=== PATIENT | female | born 1990 | race Caucasian/White ===

== ENCOUNTER 2017-05-09 14:02 | Emergency (ER) | payer OTHER ==
[2017-05-09] MEDS: ONDANSETRON 4MG/2ML VIAL (J2405) IV (15:49)
[2017-05-09] MEDS: KETOROLAC 30 MG/ML VIAL (J1885) IV (15:49)
[2017-05-09] MEDS: NS 1,000 ML IV (15:50)
== END 2017-05-09 16:56 | disposition home or self-care (01) ==
LOC: M ED 14:02
DX: J02.9 Acute pharyngitis, unspecified (principal); Z87.891 Personal history of nicotine dependence; Z88.0 Allergy status to penicillin
CPT/HCPCS: J2405

== ENCOUNTER 2023-07-13 08:39 | Day surgery (SDC) | payer OTHER ==
[~2023-07-13] VITALS: Ht 160 cm; Wt 74.9 kg
[~2023-07-13 08:39] MED LIST: ALBU8.5H INH; DOXY-444 PO; GABA800T4 PO; GLYCOPYRROLATE INJ 0.2 MG/ML 2 ML VIAL As Ordered ONE; KEFL500C17 PO; LIDOCAINE 2% 100MG/5ML SDV (FOR ANES.) As Ordered ONE; MIDAZOLAM INJ 2MG/2ML VIAL As Ordered ONE; ONDANSETRON 4MG 2ML VIAL As Ordered ONE; OXYC1TAB23 PO; RIZA10TA58 PO; SPIR1AER INH; SUMA100T2 PO; SYMB16INH INH; TOPI-21 PO; ZOFR4TAB14 PO; fentaNYL 100 MCG/2 ML INJECTION As Ordered ONE; propofoL 200 MG/20 ML VIAL As Ordered ONE
[2023-07-13] MEDS ORDERED: LR 1,000 ML IV SCH (09:10)
[2023-07-13] MEDS: ceFAZolin 2 GM/D5W 50 ML IV BAG As Ordered ONE (11:15)
[2023-07-13] MEDS: BACITRACIN OINTMENT 30GM TUBE As Ordered ONE (12:01)
[2023-07-13] MEDS ORDERED: oxyCODONE 5MG TAB PO PRN (14:05)
[2023-07-13] MEDS ORDERED: ONDANSETRON 4MG 2ML VIAL IV PRN (14:05)
[2023-07-13] MEDS ORDERED: fentaNYL 100 MCG/2 ML INJECTION IV PRN (14:05)
[2023-07-13] MEDS ORDERED: HYDROmorphone HCL 2MG/ML 1ML VIAL As Ordered ONE (14:21)
[2023-07-13] MEDS ORDERED: OXYC1TAB23 PO (14:42)
[2023-07-13 15:25] VITALS: BP 118/70; TEMP 98.4; O2SAT 97
== END 2023-07-13 15:45 | disposition home or self-care (01) ==
LOC: M SDC 08:39
PROVIDERS: ATTEND Orthopaedic Surgery Hand Surgery
DX: S64.01XA Injury of ulnar nerve at wrist and hand level of right arm, initial encounter (principal); S62.616B Displaced fracture of proximal phalanx of right little finger, initial encounter for open fracture; S66.126A Laceration of flexor muscle, fascia and tendon of right little finger at wrist and hand level, initial encounter; X99.2XXA Assault by sword or dagger, initial encounter; Y93.9 Activity, unspecified; Y92.9 Unspecified place or not applicable; R56.9 Unspecified convulsions; F31.9 Bipolar disorder, unspecified; G43.909 Migraine, unspecified, not intractable, without status migrainosus; Z79.899 Other long term (current) drug therapy; Z90.710 Acquired absence of both cervix and uterus; Z90.49 Acquired absence of other specified parts of digestive tract; Z88.0 Allergy status to penicillin; Z88.6 Allergy status to analgesic agent; Z91.013 Allergy to seafood
CPT/HCPCS: 11012; 26350; 26735; 64910; 76000; C1713; C1762; J0665; J0690; J1100; J2250; J2405; J3010

== ENCOUNTER 2023-07-13 21:27 | Emergency (ER) | payer OTHER ==
[~2023-07-13] VITALS: Ht 160 cm; Wt 75.0 kg
[~2023-07-13 21:27] MED LIST changes: -GLYCOPYRROLATE INJ 0.2 MG/ML 2 ML VIAL As Ordered ONE; -LIDOCAINE 2% 100MG/5ML SDV (FOR ANES.) As Ordered ONE; -MIDAZOLAM INJ 2MG/2ML VIAL As Ordered ONE; -ONDANSETRON 4MG 2ML VIAL As Ordered ONE; -fentaNYL 100 MCG/2 ML INJECTION As Ordered ONE; -propofoL 200 MG/20 ML VIAL As Ordered ONE
[2023-07-13] MEDS: PERCOCET 5MG/325MG TAB PO ONE (22:19)
[2023-07-13 22:55] VITALS: BP 114/72; TEMP 98.1; O2SAT 99
== END 2023-07-13 22:56 | disposition home or self-care (01) ==
LOC: M ED 22:42
DX: G89.18 Other acute postprocedural pain (principal); F17.210 Nicotine dependence, cigarettes, uncomplicated; F15.10 Other stimulant abuse, uncomplicated; Z88.8 Allergy status to other drugs, medicaments and biological substances; Z88.0 Allergy status to penicillin; Z91.013 Allergy to seafood; Z79.51 Long term (current) use of inhaled steroids; Z79.2 Long term (current) use of antibiotics; Z79.899 Other long term (current) drug therapy

== ENCOUNTER → 2023-07-17 | Outpatient (CLI) | payer OTHER | LOC: M SOG 07:50 | PROVIDERS: ATTEND Physician Assistant | DX: S66.126A Laceration of flexor muscle, fascia and tendon of right little finger at wrist and hand level, initial encounter (principal); W18.30XA Fall on same level, unspecified, initial encounter; Y92.009 Unspecified place in unspecified non-institutional (private) residence as the place of occurrence of the external cause ==